=== PATIENT | male | born 1970 | race Two or more races ===

== ENCOUNTER 2018-06-04 08:25 | Observation (INO) | payer OTHER, SELFPAY ==
[2018-06-04 08:35] VITALS: BMI 33.0
[2018-06-04] MEDS ORDERED: Alum-Mag Hydrox-Simethicone Susp (30 mL) PO STA (08:46)
--- NOTE | 2018-06-04 08:50 | ED PDOC ---
Arrival/HPI - General Chief Complaint: Chest Pain Time Seen by Provider: 06/04/18 08:35 Historian: Patient - History of Present Illness Narrative History of Present Illness (Text): 06/04/18 08:46 47 year old male, with family hx of OH, presents to the Emergency department via EMS complaining of midsternal chest pain since 6:30 am this morning. Patient informs constant non-radiating "squeezing" pain exacerbated when laying flat and with deep inspirations. Patient denies similar symptoms in the past prompting him to present to the ED for medical evaluation. Patient denies any other associated somatic complaints. Patient denies any fevers, chills, headache, dizziness, shortness of breath, dyspnea on exertion, cough, abdominal pain, nausea, vomiting, diarrhea, back pain, neck pain, or any other complaints. Patient denies smoking tobacco, drinking alcohol or any substance use. Patient informs history of OH in the family. Patient states recent travel to [facility] but denies any history of DVT. PMD: Dr. Nieto Time/Duration: 1-3 hours Symptom Onset: Gradual Symptom Course: Unchanged Quality: Aching Activities at Onset: Light Context: Home Past Medical History - Provider Review Nursing Documentation Reviewed: Yes - Travel History If Yes, travel location?: [facility] - Cardiac Other/Comment: palpitations - Psychiatric Hx Substance Use: No Family/Social History - Physician Review Nursing Documentation Reviewed: Yes Family/Social History: No Known Family HX Smoking Status: Never Smoked Hx Alcohol Use: Yes Frequency of alcohol use: Socially Hx Substance Use: No Allergies/Home Meds Allergies/Adverse Reactions: Allergies NSAIDS (Non-Steroidal Anti-Inflamma Allergy (Verified 06/04/18 08:44) SHORTNESS OF BREATH Home Medications: Home Meds Medication Instructions Recorded Confirmed No Known Home Med 06/04/18 06/04/18 Review of Systems - Physician Review All systems were reviewed & negative as marked: Yes - Review of Systems Constitutional: absent: Fevers Respiratory: absent: SOB, Cough Cardiovascular: Chest Pain. absent: STALLWORTH Gastrointestinal: absent: Abdominal Pain, Diarrhea, Nausea, Vomiting Genitourinary Male: absent: Dysuria, Urinary Output Changes Musculoskeletal: absent: Back Pain, Neck Pain Skin: absent: Rash Neurological: absent: Headache, Dizziness Physical Exam Vital Signs Reviewed: Yes Vital Signs Temp Pulse Pulse Resp BP BP Pulse Ox 06/04/18 08:43 92 H 117/79 06/04/18 08:41 98.5 F 92 H 18 117/79 96 Temperature: Afebrile Blood Pressure: Normal Pulse: Regular Respiratory Rate: Normal Appearance: Positive for: Well-Appearing, Non-Toxic, Comfortable Pain Distress: None Mental Status: Positive for: Alert and Oriented X 3 - Systems Exam Head: Present: Atraumatic, Normocephalic Pupils: Present: PERRL Extroacular Muscles: Present: EOMI Conjunctiva: Present: Normal Mouth: Present: Moist Mucous Membranes Neck: Present: Normal Range of Motion. No: Meningeal Signs, MIDLINE TENDERNESS Respiratory/Chest: Present: Clear to Auscultation, Good Air Exchange. No: Respiratory Distress, Accessory Muscle Use Cardiovascular: Present: Regular Rate and Rhythm, Normal S1, S2. No: Murmurs Abdomen: Present: Normal Bowel Sounds. No: Tenderness, Distention, Peritoneal Signs Back: Present: Normal Inspection. No: CVA Tenderness Upper Extremity: Present: Normal Inspection, NORMAL PULSES, Capillary Refill < 2s. No: Cyanosis, Edema, Tenderness, Swelling Lower Extremity: Present: Normal Inspection, NORMAL PULSES, Normal ROM, Capillary Refill < 2 s. No: Edema, CALF TENDERNESS, Cyanosis, Erythema Neurological: Present: GCS=15, CN II-XII Intact, Speech Normal Skin: Present: Warm, Dry, Normal Color. No: Rashes Psychiatric: Present: Alert, Oriented x 3, Normal Insight, Normal Concentration Medical Decision Making ED Course and Treatment: 06/04/18 08:45 Impression: 47 yr old male w/ smoking hx and family HI of OH p/w CP started at 0630 this morning. Center of chest. non-reproducible w/ palpation. Low risk wells, no leg swelling or hx of DVT. Will seek Dimer to rule out. No recent cough. Differential Diagnosis included but are not limited to: Chest pain r/o ACS vs. musculoskeletal Heart score: 3 pending trop Age: 1 Story: 0 RF: 1 EK Troponin: pending Plan: -- EKG -- Labs -- Chest X-ray -- Tramadol -- Maalox -- Reassess and disposition Prior Visits: Notes and results from previous visits were reviewed. Progress Notes: 06/04/18 08:38 EKG: Ordered, reviewed, and independently interpreted the EKG. Rate : 93 BPM Rhythm : NSR Interpretation : No ST-segment elevations or depressions, no T-wave inversions, normal intervals. No STEMI. 06/04/18 10:00 1st trop negative. appreciate consult w/ Dr. Razo: obs to his service, pending 2nd trop, reassessment, disposition. Endorsed to Pt, agreeable. In NAD with VSS. Pt has allergy to NSAID: Aspirin hard stop. - RAD Interpretation Narrative RAD Interpretations (Text): 06/04/18 09:48 Chest X-ray reviewed by radiologist, shows: FINDINGS: LUNGS: No active pulmonary disease. PLEURA: No significant pleural effusion identified. No pneumothorax apparent. CARDIOVASCULAR: Normal. OSSEOUS STRUCTURES: No significant abnormalities. VISUALIZED UPPER ABDOMEN: Normal. OTHER FINDINGS: None. IMPRESSION: No active disease. Livestock Sales Representative: Radiologist - Scribe Statement The provider has reviewed the documentation as recorded by the Scribe Meghan Espinoza. All medical record entries made by the Scribe were at my direction and personally dictated by me. I have reviewed the chart and agree that the record accurately reflects my personal performance of the history, physical exam, medical decision making, and the department course for this patient. I have also personally directed, reviewed, and agree with the discharge instructions and disposition. Disposition/Present on Arrival - Present on Arrival Any Indicators Present on Arrival: No History of DVT/PE: No History of Uncontrolled Diabetes: No Urinary Catheter: No History of Decub. Ulcer: No History Surgical Site Infection Following: None - Disposition Have Diagnosis and Disposition been Completed?: Yes Diagnosis: Chest pain Disposition: HOSPITALIZED Disposition Time: 10:04 Patient Problems: Current Active Problems Problem Status Onset Chest pain Acute Condition: GOOD Discharge Instructions (ExitCare): Chest Pain (ED) Referrals: Ger Nieto MD, PhD [Primary Care Provider] - Follow up with primary Forms: [employer] (Slovak)
[2018-06-04 09:15] LABS: BASO # 0.01 K/mm3 (0.0-2.0); BASO % 0.1 % (0.0-3.0); EOS % 0.1 % (1.5-5.0); GRAN # 11.44 (1.4-6.5); GRAN % 85.5 % (50.0-68.0); HEMOGLOBIN 14.3 g/dL (14.0-18.0); LYMPH % 7.2 % (22.0-35.0); MEAN CELL VOLUME 78.4 fl (80.0-105.0); MEAN CORPUSCULAR HEMOGLOBIN 25.4 pg (25.0-35.0); MEAN CORPUSCULAR HGB CONC 32.4 g/dl (31.0-37.0); MEAN PLATELET VOLUME 9.7 fl (7.0-11.0); MONO % 7.1 % (1.0-6.0); RBC 5.64 10^6/uL (3.5-6.1); RED CELL DISTRIBUTION WIDTH 14.8 % (11.5-14.5); WHITE BLOOD COUNT 13.4 10^3/ul (4.5-11.0)
[2018-06-04 09:19] LABS: ALB/GLOB RATIO 1.3 (1.1-1.8); ALBUMIN 4.7 g/dL (3.0-4.8); ALT/SGPT 41 U/L (7-56); AST/SGOT 32 U/L (17-59); BLOOD UREA NITROGEN 18 mg/dL (7-21); CALCIUM 9.2 mg/dL (8.4-10.5); GFR NON-AFRICAN AMERICAN > 60
[2018-06-04 09:31] LABS: B-TYPE NATRIURETIC PEPTIDE 27.9 pg/mL (0-450); TROPONIN I < 0.01 ng/mL
--- NOTE | 2018-06-04 09:47 | RAD ---
Date of service: 06/04/2018 HISTORY: cp COMPARISON: No prior. TECHNIQUE: Chest PA and lateral FINDINGS: LUNGS: No active pulmonary disease. PLEURA: No significant pleural effusion identified. No pneumothorax apparent. CARDIOVASCULAR: Normal. OSSEOUS STRUCTURES: No significant abnormalities. VISUALIZED UPPER ABDOMEN: Normal. OTHER FINDINGS: None. IMPRESSION: No active disease.
[2018-06-04] MEDS ORDERED: Alum-Mag Hydrox-Simethicone Susp (30 mL) PO PRN (10:24)
[2018-06-04] MEDS: Sodium Chloride 0.9% 1,000 ML IV SCH ×2 (10:37→21:32)
[2018-06-04 10:41] LABS: INR 1.09; PARTIAL THROMBOPLASTIN TIME 28.8 Seconds (25.1-36.5); PROTHROMBIN TIME 12.6 SECONDS (9.4-12.5)
[2018-06-04 12:51] LABS: URINE BILIRUBIN NEGATIVE (NEGATIVE); URINE BLOOD NEGATIVE (NEGATIVE); URINE GLUCOSE (UA) NEGATIVE (NEGATIVE); URINE LEUKOCYTE ESTERASE NEGATIVE Leu/uL (NEGATIVE); URINE PROTEIN NEGATIVE mg/dL (<30 mg/dL); URINE UROBILINOGEN 0.2 E.U./dL (<1 E.U./dL)
[2018-06-04 12:53] LABS: URINE APPEARANCE CLEAR (CLEAR); URINE COLOR YELLOW (YELLOW)
[2018-06-04] MEDS ORDERED: Pneumococcal 23-Valent Vaccine IM ONE (13:33)
[2018-06-04] MEDS ORDERED: Influenza Vaccine 60 mcg/0.5 mL SYR (4YR UP) IM ONE (13:33)
--- NOTE | 2018-06-04 14:43 | CARD ---
APPROVED REPORT Date of service: 06/04/2018 EKG Measurement Heart [id number] <Conclusion> Normal sinus rhythm Nonspecific intraventricular conduction delay Otherwise normal ECG
[2018-06-04] MEDS: cefTRIAXone 1 gm 1 GM/100 ML BAG IVPB SCH (15:44)
[2018-06-04] MEDS: metroNIDAZOLE IV 500 mg/100 ml 500 MG/100 ML BAG IVPB SCH ×2 (15:46→21:28)
--- NOTE | 2018-06-04 16:01 | CP.PCM.HP ---
<Ry Garzon - Last Filed: 06/04/18 15:47> History of Present Illness - History of Present Illness History of Present Illness: H&P for Dr. Parnell CC: Chest pain/Shortness Of Breath/diaphoretic x 1 day HPI: 47 M with a PMHx of H.pylori presented to the [facility] ED with complaints of chest pains. Patient states that his pain began roughly 6 am and has remained constant, localized to the mid substernal region without region and rated at a 8/10. Pt states that he became short of breath by walking to his bathroom. Patient informs constant non-radiating "squeezing" pain exacerbated when laying flat and with deep inspirations. He did not endorse any alleviating factors. He has never felt these constellation of symptoms previously. He recently traveled to the [facility] [place] 05/11/18 and returned 05/18/18, during which time he had an upset stomach after eating sushi and reported loose stools currently (3x day). He tried to take melani dolores when the pain began today in an effort to illicit belching to help relieve the gas he usually gets. He was feeling malaise when he returned from the [facility] and visited his PMD where he states he got an Abdominal US performed. Pts last BM was last night. Patient denies any other associated somatic complaints. Patient denies any fevers, chills, headache, dizziness, shortness of breath, dyspnea on exertion, no tender to palpation on chest wall, cough, abdominal pain, nausea, vomiting, diarrhea, back pain, neck pain, or any other complaints. PMHx: H pylori PSHx: Denied SHx: Denied tobacco, occasional Etoh, dneied illicits, lives in [place] with sister FamHx: Grandma [place] @ 50yr old Allergies: NSAIDs - throat swelling Meds: None PMD: Dr. Nieto -[phone] Present on Admission - Present on Admission Any Indicators Present on Admission: No Review of Systems - Review of Systems Review of Systems: As per HPI otherwise negative Past Patient History - Past Social History Smoking Status: Never Smoked - CARDIAC Hx Cardiac Disorders: Yes Other/Comment: palpitations - PULMONARY Hx Respiratory Disorders: No - NEUROLOGICAL Hx Neurological Disorder: No - HEENT Hx HEENT Problems: No - RENAL Hx Chronic Kidney Disease: No - ENDOCRINE/METABOLIC Hx Endocrine Disorders: No - HEMATOLOGICAL/ONCOLOGICAL Hx Blood Disorders: No - INTEGUMENTARY Hx Dermatological Problems: No - MUSCULOSKELETAL/RHEUMATOLOGICAL Hx Musculoskeletal Disorders: No Hx Falls: No - GASTROINTESTINAL Hx Gastrointestinal Disorders: No - GENITOURINARY/GYNECOLOGICAL Hx Genitourinary Disorders: No Hx Hematuria: Yes (1x day last week) - PSYCHIATRIC Hx Psychophysiologic Disorder: No Hx Substance Use: No - SURGICAL HISTORY Hx Surgeries: No Meds Home Medications: Home Medication List Medication Instructions Recorded Confirmed Type Pantoprazole [Protonix Inj] 40 mg IVP DAILY #30 vial 06/05/18 Rx Allergies/Adverse Reactions: Allergies Allergy/AdvReac Type Severity Reaction Status Date / Time NSAIDS (Non-Steroidal Allergy SHORTNESS Verified 06/04/18 11:45 Anti-Inflamma OF BREATH Physical Exam - Constitutional Appears: No Acute Distress - Head Exam Head Exam: ATRAUMATIC, NORMAL INSPECTION, NORMOCEPHALIC - Eye Exam Eye Exam: EOMI, Normal appearance, PERRL Pupil Exam: NORMAL ACCOMODATION, PERRL - ENT Exam ENT Exam: Mucous Membranes Moist, Normal Exam - Respiratory Exam Respiratory Exam: Clear to Auscultation Bilateral, NORMAL BREATHING PATTERN - Cardiovascular Exam Cardiovascular Exam: REGULAR RHYTHM, +S1, +S2 - GI/Abdominal Exam GI & Abdominal Exam: Normal Bowel Sounds, Soft. absent: Tenderness - Extremities Exam Extremities exam: Positive for: normal inspection - Neurological Exam Neurological exam: Alert, CN II-XII Intact, Normal Gait, Oriented x3, Reflexes Normal - Psychiatric Exam Psychiatric exam: Normal Affect, Normal Mood - Skin Skin Exam: Dry, Intact, Normal Color, Warm Results - Vital Signs Recent Vital Signs: Last Vital Signs Temp 98.3 F 06/04/18 12:22 Pulse 93 H 06/04/18 12:22 Resp 16 06/04/18 13:16 BP 120/70 06/04/18 11:00 Pulse Ox 98 06/04/18 12:22 - Labs Result Diagrams: 06/04/18 09:04 06/04/18 09:04 Labs: Laboratory Results - last 24 hr 06/04/18 06/04/18 06/04/18 09:04 09:04 09:04 WBC 13.4 H RBC 5.64 Hgb 14.3 Hct 44.2 MCV 78.4 L MCH 25.4 MCHC 32.4 RDW 14.8 H Plt Count 219 MPV 9.7 Gran % 85.5 H Lymph % (Auto) 7.2 L [place] % (Auto) 7.1 H Eos % (Auto) 0.1 L Baso % (Auto) 0.1 Gran # 11.44 H Lymph # (Auto) 1.0 L [place] # (Auto) 1.0 H Eos # (Auto) 0.0 Baso # (Auto) 0.01 PT INR APTT D-Dimer, Quantitative < 200 Sodium 141 Potassium 4.0 Chloride 104 Carbon Dioxide 28 Anion Gap 13 BUN 18 Creatinine 1.0 Est GFR ( Amer) > 60 Est GFR (Non-Af Amer) > 60 Random Glucose 114 H Hemoglobin A1c Calcium 9.2 Phosphorus Magnesium 2.2 Total Bilirubin 0.4 AST 32 ALT 41 Alkaline Phosphatase 55 Troponin I < 0.01 NT-Pro-B Natriuret Pep 27.9 Total Protein 8.4 H Albumin 4.7 Globulin 3.7 Albumin/Globulin Ratio 1.3 Triglycerides Cholesterol LDL Cholesterol Direct HDL Cholesterol Lipase Free T4 TSH 3rd Generation Urine Color Urine Appearance Urine pH Ur Specific [place] Urine Protein Urine Glucose (UA) Urine Ketones Urine Blood Urine Nitrate Urine Bilirubin Urine Urobilinogen Ur Leukocyte Esterase 06/04/18 06/04/18 06/04/18 09:04 09:04 09:04 WBC RBC Hgb Hct MCV MCH MCHC RDW Plt Count MPV Gran % Lymph % (Auto) [place] % (Auto) Eos % (Auto) Baso % (Auto) Gran # Lymph # (Auto) [place] # (Auto) Eos # (Auto) Baso # (Auto) PT INR APTT D-Dimer, Quantitative Sodium Potassium Chloride Carbon Dioxide Anion Gap BUN Creatinine Est GFR ( Amer) Est GFR (Non-Af Amer) Random Glucose Hemoglobin A1c 5.9 Calcium Phosphorus 2.3 L Magnesium Total Bilirubin AST ALT Alkaline Phosphatase Troponin I NT-Pro-B Natriuret Pep Total Protein Albumin Globulin Albumin/Globulin Ratio Triglycerides 155 Cholesterol 269 H LDL Cholesterol Direct 190 H HDL Cholesterol 46 Lipase 17 L Free T4 TSH 3rd Generation 0.36 L Urine Color Urine Appearance Urine pH Ur Specific [place] Urine Protein Urine Glucose (UA) Urine Ketones Urine Blood Urine Nitrate Urine Bilirubin Urine Urobilinogen Ur Leukocyte Esterase 06/04/18 06/04/18 06/04/18 09:04 09:04 12:20 WBC RBC Hgb Hct MCV MCH MCHC RDW Plt Count MPV Gran % Lymph % (Auto) [place] % (Auto) Eos % (Auto) Baso % (Auto) Gran # Lymph # (Auto) [place] # (Auto) Eos # (Auto) Baso # (Auto) PT 12.6 H INR 1.09 APTT 28.8 D-Dimer, Quantitative Sodium Potassium Chloride Carbon Dioxide Anion Gap BUN Creatinine Est GFR ( Amer) Est GFR (Non-Af Amer) Random Glucose Hemoglobin A1c Calcium Phosphorus Magnesium Total Bilirubin AST ALT Alkaline Phosphatase Troponin I NT-Pro-B Natriuret Pep Total Protein Albumin Globulin Albumin/Globulin Ratio Triglycerides Cholesterol LDL Cholesterol Direct HDL Cholesterol Lipase Free T4 0.80 TSH 3rd Generation Urine Color Yellow Urine Appearance Clear Urine pH 6.0 Ur Specific [place] 1.020 Urine Protein Negative Urine Glucose (UA) Negative Urine Ketones 15 H Urine Blood Negative Urine Nitrate Negative Urine Bilirubin Negative Urine Urobilinogen 0.2 Ur Leukocyte Esterase Negative Assessment & Plan - Assessment and Plan (Free Text) Assessment: 47 M with a PMHx of H.pylori presented to the [facility] ED with complaints of chest pains. Patient states that his pain began roughly 6 am and has remained constant, localized to the mid substernal region without region and rated at a 8/10 admitted to tele to ro ACS Chest pain r/o ACS vs GI trend trops trend EKG Cardiology consulted, Dr. Wilburn Echo fu TSH Lipid profile Statin Aspirin allergy Lipase FU abd US from PMD monitor Vitals Loose stools stool cx ova parasites flagyl and rocephin GI ppx protonix DVT ppx Heparin Seen reviewed and discussed with attending Dr. Parnell <Afua Parnell - Last Filed: 06/05/18 17:45> Results - Vital Signs Recent Vital Signs: Last Vital Signs Temp 98.1 F 06/05/18 08:10 Pulse 87 06/05/18 14:00 Resp 19 06/05/18 08:10 BP 101/68 06/05/18 08:10 Pulse Ox 95 06/05/18 08:10 - Labs Result Diagrams: 06/05/18 06:30 06/05/18 06:30 Labs: Laboratory Results - last 24 hr 06/04/18 06/05/18 06/05/18 23:45 06:30 06:30 WBC 10.3 D RBC 4.93 Hgb 12.3 L D Hct 38.6 L MCV 78.3 L MCH 24.9 L MCHC 31.9 RDW 14.9 H Plt Count 219 MPV 9.9 Gran % 63.8 Lymph % (Auto) 25.7 [place] % (Auto) 10.0 H Eos % (Auto) 0.4 L Baso % (Auto) 0.1 Gran # 6.56 H Lymph # (Auto) 2.6 [place] # (Auto) 1.0 H Eos # (Auto) 0.0 Baso # (Auto) 0.01 Sodium 139 Potassium 3.6 Chloride 105 Carbon Dioxide 27 Anion Gap 10 BUN 14 Creatinine 1.0 Est GFR ( Amer) > 60 Est GFR (Non-Af Amer) > 60 Random Glucose 98 Calcium 8.5 Phosphorus Total Bilirubin 0.9 AST 22 ALT 35 Alkaline Phosphatase 45 Troponin I 0.04 Total Protein 6.9 Albumin 3.7 Globulin 3.3 Albumin/Globulin Ratio 1.1 06/05/18 08:00 WBC RBC Hgb Hct MCV MCH MCHC RDW Plt Count MPV Gran % Lymph % (Auto) [place] % (Auto) Eos % (Auto) Baso % (Auto) Gran # Lymph # (Auto) [place] # (Auto) Eos # (Auto) Baso # (Auto) Sodium Potassium Chloride Carbon Dioxide Anion Gap BUN Creatinine Est GFR ( Amer) Est GFR (Non-Af Amer) Random Glucose Calcium Phosphorus 2.9 Total Bilirubin AST ALT Alkaline Phosphatase Troponin I Total Protein Albumin Globulin Albumin/Globulin Ratio Attending/Attestation - Attestation I have personally seen and examined this patient.: Yes I have fully participated in the care of the patient.: Yes I have reviewed all pertinent clinical information: Yes Notes (Text): 06/05/18 17:43 Attending note; Patient seen and examined with resident. Patient is alert and awake. Complaining of upper epigastric/substernal area pain. Burning in nature sometimes. Not in any acute distress. Atypical chest pain; EKG shows normal sinus rhythm/no acute ST-T changes. Cardiac enzymes 1 negative. Cardiac enzymes 3 ordered. Cardiology evaluation requested. History of H. pylori treated. possible gastritis suspected. Started on Protonix. History of recent gastroenteritis. Currently no diarrhea. Tolerating diet well. Started on Rocephin and Flagyl. Monitor closely. Upon discharge the patient will follow up with PMD Dr. Sifuentes. 06/05/18 17:45
--- NOTE | 2018-06-05 04:00 | CON ---
DATE: 06/04/2018 CONSULT SERVICE: Cardiology. REASON FOR THE CONSULTATION: Cardiac evaluation and chest pain (epigastric pain). BRIEF CLINICAL HISTORY: This is a 47-year-old obese male with history of H. pylori, presented to the [facility] after taking shower at 3 p.m. opened the window and then he felt chest pain taking a deep breath and epigastric pain. Denies any chest pain or dyspnea on exertion prior to that. Day before yesterday, the patient did grocery for his aunt and took the steps for third floor. No history of chest pain prior to that. PAST MEDICAL HISTORY: Nothing significant. SOCIAL HISTORY: Denies smoking, but drinks 3 to 4 cans of beer and hard liquor every weekend and goes to bar and watch the football match and drinks. PAST SURGICAL HISTORY: Nothing significant. FAMILY HISTORY: Noncontributory except grandmother at the age of 45, but she was a very heavy smoker. CURRENT MEDICATIONS: None. ALLERGIES: Not sure. REVIEW OF SYSTEMS: As per HPI. PHYSICAL EXAMINATION: VITAL SIGNS: Height of the patient 5 feet 10 inches, weight of the patient 230 pounds, body mass index 34 kg/m2. Temperature afebrile, heart rate 93, blood pressure 120/70. HEENT: PERRLA. Extraocular muscles intact. NECK: Supple. No carotid bruit or thyromegaly. CHEST: Clear to auscultation. HEART: S1 and S2 regular. ABDOMEN: Soft. EXTREMITIES: Clubbing and cyanosis negative. LABORATORY DATA: Blood workup as follows: WBC 13.4, hemoglobin 14.9, hematocrit 44.2, platelet count 219. Chemistry shows sodium 141, potassium 4, chloride 104, carbon dioxide 28, anion gap of 30, BUN 18, creatinine 1.0. Triglycerides 155, cholesterol 269, LDL 190, HDL 46, lipase 17. TSH is 0.36. Blood sugar 114. Hemoglobin A1c 5.9. IMPRESSION: A 47-year-old male with no significant past medical history, prediabetic, hyperlipidemia, morbid obesity, multiple history of coronary artery disease. Though the chest pain appears very atypical, it increases on taking a deep breath and after having a shower and cold exposure, it could be early bronchitis versus probably musculoskeletal chest pain. Also, it could be gastric pain, history of Helicobacter pylori, but the concern is patient's multiple history of coronary artery disease, suggest echo, stress test. We will schedule the stress test tomorrow. Appears to be noncompliant with the patient goals for risk stratification, very difficult to get the stress, so we will schedule the stress test tomorrow, keep n.p.o. and we will also start atorvastatin 20 mg daily and we will give baby aspirin and we will follow the stress test and echo. Thank you Dr. Parnell, for providing us the opportunity in taking care of the patient. Keenan Hardy. We will follow with you. Анна Raphael MD
[2018-06-05] MEDS: metroNIDAZOLE IV 500 mg/100 ml 500 MG/100 ML BAG IVPB SCH ×2 (06:16→14:55)
[2018-06-05 06:56] LABS: BASO # 0.01 K/mm3 (0.0-2.0); BASO % 0.1 % (0.0-3.0); EOS % 0.4 % (1.5-5.0); GRAN # 6.56 (1.4-6.5); GRAN % 63.8 % (50.0-68.0); LYMPH # 2.6 (1.2-3.4); LYMPH % 25.7 % (22.0-35.0); MEAN CELL VOLUME 78.3 fl (80.0-105.0); MEAN CORPUSCULAR HEMOGLOBIN 24.9 pg (25.0-35.0); MEAN CORPUSCULAR HGB CONC 31.9 g/dl (31.0-37.0); MEAN PLATELET VOLUME 9.9 fl (7.0-11.0); RBC 4.93 10^6/uL (3.5-6.1); RED CELL DISTRIBUTION WIDTH 14.9 % (11.5-14.5); WHITE BLOOD COUNT 10.3 10^3/ul (4.5-11.0)
[2018-06-05 07:00] LABS: HEMOGLOBIN 12.3 g/dL (14.0-18.0)
[2018-06-05 07:19] LABS: ALB/GLOB RATIO 1.1 (1.1-1.8); ALBUMIN 3.7 g/dL (3.0-4.8); ALT/SGPT 35 U/L (7-56); AST/SGOT 22 U/L (17-59); BLOOD UREA NITROGEN 14 mg/dL (7-21); CALCIUM 8.5 mg/dL (8.4-10.5); GFR NON-AFRICAN AMERICAN > 60
--- NOTE | 2018-06-05 07:27 | CP.PCM.PN ---
Subjective - Date & Time of Evaluation Date of Evaluation: 06/05/18 Time of Evaluation: 06:40 - Subjective Subjective: Awake,alert,denies chest pain, going for stress test today Reason for consultation and follow up: Cardiac evaluation of chest pain (epi gastric pain),history of H-pylori. Seen and examined by me and Dr. Raphael Objective - Vital Signs/Intake and Output Vital Signs (last 24 hours): Temp Pulse Resp BP Pulse Ox 98.2 F 82 20 119/85 97 06/05/18 00:01 06/05/18 06:00 06/05/18 00:01 06/05/18 00:01 06/05/18 00:01 Intake and Output: 06/05/18 06/05/18 06:59 18:59 Intake Total 1680 Balance 1680 - Medications Medications: Current Medications Al Hydrox/Mg Hydrox/Simethicone (Maalox Plus 30 Ml) 30 ml PO DAILY PRN PRN Reason: Indigestion / Heartburn Last Admin: 06/04/18 22:37 Dose: 30 ml Atorvastatin Calcium (Lipitor) 40 mg PO DIN [facility] Last Admin: 06/04/18 17:22 Dose: 40 mg Heparin Sodium (Porcine) (Heparin) 5,000 units SC Q12 JEFF; Protocol Last Admin: 06/04/18 21:29 Dose: 5,000 units Sodium Chloride (Sodium Chloride 0.9%) 1,000 mls @ 100 mls/hr IV .Q10H JEFF Last Admin: 06/04/18 21:32 Dose: 100 mls/hr Metronidazole (Flagyl) 500 mg in 100 mls @ 100 mls/hr IVPB Q8 JEFF; Protocol Last Admin: 06/05/18 06:16 Dose: 100 mls/hr Ceftriaxone Sodium (Rocephin 1 Gram Ivpb) 1 gm in 100 mls @ 100 mls/hr IVPB DAILY JEFF; Protocol Last Admin: 06/04/18 15:44 Dose: 100 mls/hr Pantoprazole Sodium (Protonix Inj) 40 mg IVP DAILY [facility] Last Admin: 06/04/18 10:37 Dose: 40 mg - Labs Labs: 06/05/18 06:30 06/05/18 06:30 PT 12.6 SECONDS (9.4-12.5) H 06/04/18 09:04 INR 1.09 06/04/18 09:04 APTT 28.8 Seconds (25.1-36.5) 06/04/18 09:04 - Constitutional Appears: Non-toxic, No Acute Distress - Head Exam Head Exam: NORMAL INSPECTION, NORMOCEPHALIC - Eye Exam Eye Exam: Normal appearance Pupil Exam: NORMAL ACCOMODATION - ENT Exam ENT Exam: Mucous Membranes Moist, Normal Exam - Respiratory Exam Respiratory Exam: Clear to Ausculation Bilateral, NORMAL BREATHING PATTERN - Cardiovascular Exam Cardiovascular Exam: REGULAR RHYTHM, +S1, +S2 Additional comments: Telemetry NSR 70's - GI/Abdominal Exam GI & Abdominal Exam: Soft, Normal Bowel Sounds - Extremities Exam Extremities Exam: Full ROM, Normal Capillary Refill - Neurological Exam Neurological Exam: Alert, Awake, Oriented x3 - Psychiatric Exam Psychiatric exam: Normal Affect, Normal Mood - Skin Skin Exam: Dry, Intact, Normal Color, Warm Assessment and Plan - Assessment and Plan (Free Text) Assessment: A 47 year old male who came in to the ER due to localized mid sternal non radiating chest pains. Chest pain increases when taking deep breaths.History of H-pylori. Prediabetic, obese, hyperlipidemia.Travelled to [facility] recently and reported to have loose stools. Atrypical chest pain,considering co-morbidities and family history of coronary artery disease. For stress test today and Echo. Plan: Feels okay, denies chest pain For Stress test today NPO post midnight For Echo to evaluate LV function Heart rate stable Blood pressure stable Continue current medications Continue current treatment Will follow up Chart reviewed Plan and treatment discussed with Dr. Raphael
[2018-06-05 08:11] VITALS: BP 101/68; RESP 19; TEMP 98.1; O2SAT 95
[2018-06-05] MEDS: cefTRIAXone 1 gm 1 GM/100 ML BAG IVPB SCH (10:48)
--- NOTE | 2018-06-05 12:57 | CP.PCM.PN ---
<Nicole Mehta - Last Filed: 06/05/18 16:30> Subjective - Date & Time of Evaluation Date of Evaluation: 06/05/18 Time of Evaluation: 10:00 - Subjective Subjective: Patient seen and examined at bedside this am. He was standing at bedside with no complaints. He states that he experienced chest burning and nausea during the stress test but no vomiting. He otherwise denies ESTRADA, SOB, abdominal pain, dysuria and extremity pain. Objective - Vital Signs/Intake and Output Vital Signs (last 24 hours): Temp Pulse Resp BP Pulse Ox 98.1 F 59 L 19 101/68 95 06/05/18 08:10 06/05/18 08:10 06/05/18 08:10 06/05/18 08:10 06/05/18 08:10 Intake and Output: 06/05/18 06/05/18 06:59 18:59 Intake Total 1680 Balance 1680 - Medications Medications: Current Medications Al Hydrox/Mg Hydrox/Simethicone (Maalox Plus 30 Ml) 30 ml PO DAILY PRN PRN Reason: Indigestion / Heartburn Last Admin: 06/04/18 22:37 Dose: 30 ml Atorvastatin Calcium (Lipitor) 40 mg PO DIN JEFF Last Admin: 06/04/18 17:22 Dose: 40 mg Heparin Sodium (Porcine) (Heparin) 5,000 units SC Q12 JEFF; Protocol Last Admin: 06/05/18 10:47 Dose: Not Given Sodium Chloride (Sodium Chloride 0.9%) 1,000 mls @ 100 mls/hr IV .Q10H JEFF Last Admin: 06/04/18 21:32 Dose: 100 mls/hr Metronidazole (Flagyl) 500 mg in 100 mls @ 100 mls/hr IVPB Q8 JEFF; Protocol Last Admin: 06/05/18 06:16 Dose: 100 mls/hr Ceftriaxone Sodium (Rocephin 1 Gram Ivpb) 1 gm in 100 mls @ 100 mls/hr IVPB DAILY JEFF; Protocol Last Admin: 06/05/18 10:48 Dose: Not Given Pantoprazole Sodium (Protonix Inj) 40 mg IVP DAILY [facility] Last Admin: 06/05/18 10:48 Dose: Not Given - Labs Labs: 06/05/18 06:30 06/05/18 06:30 PT 12.6 SECONDS (9.4-12.5) H 06/04/18 09:04 INR 1.09 06/04/18 09:04 APTT 28.8 Seconds (25.1-36.5) 06/04/18 09:04 - Constitutional Appears: Well, Non-toxic, No Acute Distress - Head Exam Head Exam: ATRAUMATIC, NORMOCEPHALIC - Eye Exam Eye Exam: EOMI - ENT Exam ENT Exam: Mucous Membranes Moist - Respiratory Exam Respiratory Exam: NORMAL BREATHING PATTERN - Cardiovascular Exam Cardiovascular Exam: REGULAR RHYTHM - GI/Abdominal Exam GI & Abdominal Exam: Soft. absent: Distended, Guarding, Tenderness - Extremities Exam Extremities Exam: absent: Calf Tenderness, Pedal Edema - Neurological Exam Neurological Exam: Alert, Awake, Normal Gait, Oriented x3 - Psychiatric Exam Psychiatric exam: Normal Affect, Normal Mood - Skin Skin Exam: Dry, Intact, Normal Color, Warm Assessment and Plan - Assessment and Plan (Free Text) Assessment: 47 yr old M with burning chest pain and GERD-like symptoms Plan: - patient is to follow up stress test results outpatient per Dr. Raphael - patient will be discharged with Protonix 40mg PO Daily #30 - patient has been instructed to f/u with his primary care doctor out patient within 3-5 days as well as with Dr. raphael in the same time period Patient seen and examined with Dr. Parmjit Mehta, PGY 1 <Afua Parnell - Last Filed: 06/05/18 17:47> Objective - Vital Signs/Intake and Output Vital Signs (last 24 hours): Temp Pulse Resp BP Pulse Ox 98.1 F 87 19 101/68 95 06/05/18 08:10 06/05/18 14:00 06/05/18 08:10 06/05/18 08:10 06/05/18 08:10 Intake and Output: 06/05/18 06/05/18 06:59 18:59 Intake Total 1680 Balance 1680 - Labs Labs: 06/05/18 06:30 06/05/18 06:30 PT 12.6 SECONDS (9.4-12.5) H 06/04/18 09:04 INR 1.09 06/04/18 09:04 APTT 28.8 Seconds (25.1-36.5) 06/04/18 09:04 Attending/Attestation - Attestation I have personally seen and examined this patient.: Yes I have fully participated in the care of the patient.: Yes I have reviewed all pertinent clinical information, including history, physical exam and plan: Yes Notes (Text): 06/05/18 17:46 Attending note; Patient seen and examined with resident. Patient is alert and awake. Complaining of upper epigastric/substernal area pain. Burning in nature sometimes. Not in any acute distress. going for stess test today. Atypical chest pain; EKG shows normal sinus rhythm/no acute ST-T changes. Cardiac enzymes 3 negative. Cardiology evaluation appreciated. History of H. pylori treated. possible gastritis suspected. Started on Protonix. History of recent gastroenteritis. Currently no diarrhea. Tolerating diet well. Upon discharge the patient will follow up with PMD Dr. Sifuentes.
--- NOTE | 2018-06-05 15:21 | PN ---
DATE: 06/05/2018 SUBJECTIVE: The patient denies any chest pain, going for a stress test. The patient underwent a stress test for 9 minutes. No EKG changes noted. Awaiting for nuclear scan. So far no evidence of acute GA. Troponin remains negative. First one is negative. Second one is 0.04, also indeterminate range. During the multiple defect, suggest a stress test. We will follow with you. Thank you, Dr. Parnell, for providing us the opportunity in taking care of the patient, Hayley Hussein. Анна Raphael MD
[2018-06-05 16:11] VITALS: PULSE 87
--- NOTE | 2018-06-05 16:48 | CARD ---
APPROVED REPORT Date of service: 06/05/2018 EXAM: Two-dimensional and M-mode echocardiogram with Doppler and color Doppler. INDICATION Chest Pain 2D DIMENSIONS Left Atrium (2D)4.2 (1.6-4.0cm)IVSd1.1 (0.7-1.1cm) LVDd4.9 (3.9-5.9cm)PWd1.2 (0.7-1.1cm) LVDs3.5 (2.5-4.0cm)FS (%) 28.6 % LVEF (%)55.0 (>50%) M-Mode DIMENSIONS Aortic Root3.60 (2.2-3.7cm)Aortic Cusp Exc.1.90 (1.5-2.0cm) Aortic Valve AoV Peak Cujvpldu056.0cm/Michael Peak GR.8mmHg Mitral Valve MV E Eucymkmv28.5cm/sMV A Wgdddwzf76.3cm/sE/A ratio1.4 TDI Lateral E' Peak V12.80cm/sMedial E' Peak V8.97cm/sE/Lateral E'6.2 E/Medial E'8.9 Pulmonary Valve PV Peak Zkaiqltk25.1cm/sPV Peak Grad.2mmHg Tricuspid Valve TR Peak Qyujjdtr672dg/sRAP WCUKSCZL27poZcPV Peak Gr.24mmHg [id number] LEFT VENTRICLE The left ventricle is normal size. There is normal left ventricular wall thickness. The left ventricular ejection fraction is within the normal range. Lateral wall hypokinesis The left ventricular diastolic function is normal. RIGHT VENTRICLE The right ventricle is normal size. There is normal right ventricular wall thickness. The right ventricular systolic function is normal. ATRIA The left atrium is borderline dilated. The right atrium size is normal. AORTIC VALVE The aortic valve is normal in structure. No aortic regurgitation is present. There is no aortic valvular stenosis. MITRAL VALVE The mitral valve is normal in structure. Mitral regurgitation is trace. There is no mitral valve stenosis. TRICUSPID VALVE The tricuspid valve is normal in structure. There is mild tricuspid regurgitation. There is mild pulmonary hypertension. PULMONIC VALVE The pulmonary valve is normal in structure. There is mild pulmonic valvular regurgitation. GREAT VESSELS The aortic root is normal in size. The IVC is normal in size and collapses >50% with inspiration. PERICARDIAL EFFUSION There is no pericardial effusion. <Conclusion> The left ventricle is normal size. There is normal left ventricular wall thickness. The left ventricular ejection fraction is within the normal range. Lateral wall hypokinesis The left ventricular diastolic function is normal. There is mild tricuspid regurgitation. There is mild pulmonary hypertension.
--- NOTE | 2018-06-05 16:52 | CP.PCM.DIS ---
<Nicole Mehta - Last Filed: 06/05/18 16:58> Provider - Provider Date of Admission: 06/04/18 09:58 Attending physician: Afua Parnell MD Primary care physician: Ger Nieto MD Phd Consults: Cardiology- Dr. Grace Time Spent in preparation of Discharge (in minutes): 45 Diagnosis - Discharge Diagnosis (1) GERD (gastroesophageal reflux disease) Status: Acute (2) Chest pain Status: Acute Hospital Course - Lab Results Lab Results: Most Recent Lab Values WBC 10.3 10^3/ul (4.5-11.0) D 06/05/18 06:30 RBC 4.93 10^6/uL (3.5-6.1) 06/05/18 06:30 Hgb 12.3 g/dL (14.0-18.0) L D 06/05/18 06:30 Hct 38.6 % (42.0-52.0) L 06/05/18 06:30 MCV 78.3 fl (80.0-105.0) L 06/05/18 06:30 MCH 24.9 pg (25.0-35.0) L 06/05/18 06:30 MCHC 31.9 g/dl (31.0-37.0) 06/05/18 06:30 RDW 14.9 % (11.5-14.5) H 06/05/18 06:30 Plt Count 219 10^3/uL (120.0-450.0) 06/05/18 06:30 MPV 9.9 fl (7.0-11.0) 06/05/18 06:30 Gran % 63.8 % (50.0-68.0) 06/05/18 06:30 Lymph % (Auto) 25.7 % (22.0-35.0) 06/05/18 06:30 [place] % (Auto) 10.0 % (1.0-6.0) H 06/05/18 06:30 Eos % (Auto) 0.4 % (1.5-5.0) L 06/05/18 06:30 Baso % (Auto) 0.1 % (0.0-3.0) 06/05/18 06:30 Gran # 6.56 (1.4-6.5) H 06/05/18 06:30 Lymph # (Auto) 2.6 (1.2-3.4) 06/05/18 06:30 [place] # (Auto) 1.0 (0.1-0.6) H 06/05/18 06:30 Eos # (Auto) 0.0 (0.0-0.7) 06/05/18 06:30 Baso # (Auto) 0.01 K/mm3 (0.0-2.0) 06/05/18 06:30 PT 12.6 SECONDS (9.4-12.5) H 06/04/18 09:04 INR 1.09 06/04/18 09:04 APTT 28.8 Seconds (25.1-36.5) 06/04/18 09:04 D-Dimer, Quantitative < 200 ng/mlDDU (0-243) 06/04/18 09:04 Sodium 139 mmol/L (132-148) 06/05/18 06:30 Potassium 3.6 mmol/L (3.6-5.0) 06/05/18 06:30 Chloride 105 mmol/L (98-107) 06/05/18 06:30 Carbon Dioxide 27 mmol/L (21-33) 06/05/18 06:30 Anion Gap 10 (10-20) 06/05/18 06:30 BUN 14 mg/dL (7-21) 06/05/18 06:30 Creatinine 1.0 mg/dl (0.8-1.5) 06/05/18 06:30 Est GFR ( Amer) > 60 06/05/18 06:30 Est GFR (Non-Af Amer) > 60 06/05/18 06:30 Random Glucose 98 mg/dL (70-110) 06/05/18 06:30 Hemoglobin A1c 5.9 % (4.2-6.5) 06/04/18 09:04 Calcium 8.5 mg/dL (8.4-10.5) 06/05/18 06:30 Phosphorus 2.9 mg/dL (2.5-4.5) 06/05/18 08:00 Magnesium 2.2 mg/dL (1.7-2.2) 06/04/18 09:04 Total Bilirubin 0.9 mg/dL (0.2-1.3) 06/05/18 06:30 AST 22 U/L (17-59) 06/05/18 06:30 ALT 35 U/L (7-56) 06/05/18 06:30 Alkaline Phosphatase 45 U/L (38-126) 06/05/18 06:30 Troponin I 0.04 ng/mL 06/04/18 23:45 NT-Pro-B Natriuret Pep 27.9 pg/mL (0-450) 06/04/18 09:04 Total Protein 6.9 g/dL (5.8-8.3) 06/05/18 06:30 Albumin 3.7 g/dL (3.0-4.8) 06/05/18 06:30 Globulin 3.3 gm/dL 06/05/18 06:30 Albumin/Globulin Ratio 1.1 (1.1-1.8) 06/05/18 06:30 Triglycerides 155 mg/dL (35-160) 06/04/18 09:04 Cholesterol 269 mg/dL (130-200) H 06/04/18 09:04 LDL Cholesterol Direct 190 mg/dL (0-129) H 06/04/18 09:04 HDL Cholesterol 46 mg/dL (29-60) 06/04/18 09:04 Lipase 17 U/L (23-300) L 06/04/18 09:04 Free T4 0.80 ng/dL (0.78-2.19) 06/04/18 09:04 TSH 3rd Generation 0.36 mIU/mL (0.46-4.68) L 06/04/18 09:04 Urine Color Yellow (YELLOW) 06/04/18 12:20 Urine Appearance Clear (CLEAR) 06/04/18 12:20 Urine pH 6.0 (4.7-8.0) 06/04/18 12:20 Ur Specific Remlap 1.020 (1.005-1.035) 06/04/18 12:20 Urine Protein Negative mg/dL (<30 mg/dL) 06/04/18 12:20 Urine Glucose (UA) Negative mg/dL (NEGATIVE) 06/04/18 12:20 Urine Ketones 15 mg/dL (NEGATIVE) H 06/04/18 12:20 Urine Blood Negative (NEGATIVE) 06/04/18 12:20 Urine Nitrate Negative (NEGATIVE) 06/04/18 12:20 Urine Bilirubin Negative (NEGATIVE) 06/04/18 12:20 Urine Urobilinogen 0.2 E.U./dL (<1 E.U./dL) 06/04/18 12:20 Ur Leukocyte Esterase Negative Janae/uL (NEGATIVE) 06/04/18 12:20 - Hospital Course Hospital Course: 47 y/o M patient with PMHx H. pylori presented to [facility] ED c/o chest pain. Pain began roughly at 6am yesterday and has remained constant, localized to the mid substernal region without radiation. Pt states became short of breath while walking to the bathroom. Patient states pain is non-radiating and constant "squeezing" pain that is exacerbated by laying flat and with deep inspirations. He did not endorse any alleviating factors. He never has had these symptoms before. He recently traveled to the [facility] [place] 05/11/18 and returned 05/18/18, during which time he had an upset stomach after eating sushi and reported loose stools currently (3x day). He tried to take melani dolores when the pain began today in an effort to illicit belching. He was feeling malaise when he returned from the [facility] [place] and visited his PMD where he states he got an abdominal US performed. He will be following up with his PMD for results. Pts last BM was last night. Patient denies any other associated somatic complaints. Patient denies any fevers, chills, headaches. Upon admission, troponins were negative x2 and EKG revealed normal sinus rhythm with nonspecific intraventricular conduction delay. CXR showed no active disease. Stress test was performed. Patient is to follow up stress test results outpatient per Dr. Grace. Heart rate and blood pressure were stable throughout hospital stay. On morning of discharge, patient was awake, alert, and oriented x3. Patient was medically stable. Denies chest pain and shortness of breath. Patient has been instructed to f/u with primary care physician outpatient within 3-5 days of discharge as well as f/u with Dr. Grace for stress test results. Discharge Exam - Head Exam Head Exam: ATRAUMATIC, NORMOCEPHALIC - Eye Exam Eye Exam: EOMI - ENT Exam ENT Exam: Mucous Membranes Moist - Respiratory Exam Respiratory Exam: Clear to PA & Lateral, NORMAL BREATHING PATTERN - Cardiovascular Exam Cardiovascular Exam: REGULAR RHYTHM - GI/Abdominal Exam GI & Abdominal Exam: Soft. absent: Distended, Guarding, Rigid, Tenderness - Extremities Exam Extremities exam: normal capillary refill, pedal pulses present - Back Exam Back exam: NORMAL INSPECTION - Neurological Exam Neurological exam: Alert, Oriented x3 - Psychiatric Exam Psychiatric exam: Normal Affect, Normal Mood - Skin Skin Exam: Dry, Intact, Normal Color, Warm Discharge Plan - Discharge Medications Prescriptions: Pantoprazole [Protonix Inj] 40 mg IVP DAILY #30 vial - Follow Up Plan Condition: GOOD Disposition: HOME/ ROUTINE Instructions: Chest Pain (DC) Additional Instructions: Upon discharge from the hospital you will need to follow up with your primary care doctor and with Dr. Grace the triage licensed practical nurse for the results of your stress test within 3-5 days. You will be given the following new medications to take at home and should continue all of your home medications as before: protonix 40 mg by mouth daily for 30 days If you should have any symptoms of chest pain, shortness of breath, difficulty breathing, shoulder pain, pain radiating into your neck or arm, please go to the nearest emergency room immediately for treatment. Referrals: Анна Grace MD [Staff Provider] - Ger Nieto MD, PhD [Primary Care Provider] - <Afua Parnell - Last Filed: 06/06/18 09:00> Provider - Provider Date of Admission: 06/04/18 09:58 Attending physician: Afua Parnell MD Primary care physician: Ger Nieto MD Phd Hospital Course - Lab Results Lab Results: Most Recent Lab Values WBC 10.3 10^3/ul (4.5-11.0) D 06/05/18 06:30 RBC 4.93 10^6/uL (3.5-6.1) 06/05/18 06:30 Hgb 12.3 g/dL (14.0-18.0) L D 06/05/18 06:30 Hct 38.6 % (42.0-52.0) L 06/05/18 06:30 MCV 78.3 fl (80.0-105.0) L 06/05/18 06:30 MCH 24.9 pg (25.0-35.0) L 06/05/18 06:30 MCHC 31.9 g/dl (31.0-37.0) 06/05/18 06:30 RDW 14.9 % (11.5-14.5) H 06/05/18 06:30 Plt Count 219 10^3/uL (120.0-450.0) 06/05/18 06:30 MPV 9.9 fl (7.0-11.0) 06/05/18 06:30 Gran % 63.8 % (50.0-68.0) 06/05/18 06:30 Lymph % (Auto) 25.7 % (22.0-35.0) 06/05/18 06:30 [place] % (Auto) 10.0 % (1.0-6.0) H 06/05/18 06:30 Eos % (Auto) 0.4 % (1.5-5.0) L 06/05/18 06:30 Baso % (Auto) 0.1 % (0.0-3.0) 06/05/18 06:30 Gran # 6.56 (1.4-6.5) H 06/05/18 06:30 Lymph # (Auto) 2.6 (1.2-3.4) 06/05/18 06:30 [place] # (Auto) 1.0 (0.1-0.6) H 06/05/18 06:30 Eos # (Auto) 0.0 (0.0-0.7) 06/05/18 06:30 Baso # (Auto) 0.01 K/mm3 (0.0-2.0) 06/05/18 06:30 PT 12.6 SECONDS (9.4-12.5) H 06/04/18 09:04 INR 1.09 06/04/18 09:04 APTT 28.8 Seconds (25.1-36.5) 06/04/18 09:04 D-Dimer, Quantitative < 200 ng/mlDDU (0-243) 06/04/18 09:04 Sodium 139 mmol/L (132-148) 06/05/18 06:30 Potassium 3.6 mmol/L (3.6-5.0) 06/05/18 06:30 Chloride 105 mmol/L (98-107) 06/05/18 06:30 Carbon Dioxide 27 mmol/L (21-33) 06/05/18 06:30 Anion Gap 10 (10-20) 06/05/18 06:30 BUN 14 mg/dL (7-21) 06/05/18 06:30 Creatinine 1.0 mg/dl (0.8-1.5) 06/05/18 06:30 Est GFR ( Amer) > 60 06/05/18 06:30 Est GFR (Non-Af Amer) > 60 06/05/18 06:30 Random Glucose 98 mg/dL (70-110) 06/05/18 06:30 Hemoglobin A1c 5.9 % (4.2-6.5) 06/04/18 09:04 Calcium 8.5 mg/dL (8.4-10.5) 06/05/18 06:30 Phosphorus 2.9 mg/dL (2.5-4.5) 06/05/18 08:00 Magnesium 2.2 mg/dL (1.7-2.2) 06/04/18 09:04 Total Bilirubin 0.9 mg/dL (0.2-1.3) 06/05/18 06:30 AST 22 U/L (17-59) 06/05/18 06:30 ALT 35 U/L (7-56) 06/05/18 06:30 Alkaline Phosphatase 45 U/L (38-126) 06/05/18 06:30 Troponin I 0.04 ng/mL 06/04/18 23:45 NT-Pro-B Natriuret Pep 27.9 pg/mL (0-450) 06/04/18 09:04 Total Protein 6.9 g/dL (5.8-8.3) 06/05/18 06:30 Albumin 3.7 g/dL (3.0-4.8) 06/05/18 06:30 Globulin 3.3 gm/dL 06/05/18 06:30 Albumin/Globulin Ratio 1.1 (1.1-1.8) 06/05/18 06:30 Triglycerides 155 mg/dL (35-160) 06/04/18 09:04 Cholesterol 269 mg/dL (130-200) H 06/04/18 09:04 LDL Cholesterol Direct 190 mg/dL (0-129) H 06/04/18 09:04 HDL Cholesterol 46 mg/dL (29-60) 06/04/18 09:04 Lipase 17 U/L (23-300) L 06/04/18 09:04 Free T4 0.80 ng/dL (0.78-2.19) 06/04/18 09:04 TSH 3rd Generation 0.36 mIU/mL (0.46-4.68) L 06/04/18 09:04 Urine Color Yellow (YELLOW) 06/04/18 12:20 Urine Appearance Clear (CLEAR) 06/04/18 12:20 Urine pH 6.0 (4.7-8.0) 06/04/18 12:20 Ur Specific Remlap 1.020 (1.005-1.035) 06/04/18 12:20 Urine Protein Negative mg/dL (<30 mg/dL) 06/04/18 12:20 Urine Glucose (UA) Negative mg/dL (NEGATIVE) 06/04/18 12:20 Urine Ketones 15 mg/dL (NEGATIVE) H 06/04/18 12:20 Urine Blood Negative (NEGATIVE) 06/04/18 12:20 Urine Nitrate Negative (NEGATIVE) 06/04/18 12:20 Urine Bilirubin Negative (NEGATIVE) 06/04/18 12:20 Urine Urobilinogen 0.2 E.U./dL (<1 E.U./dL) 06/04/18 12:20 Ur Leukocyte Esterase Negative Janae/uL (NEGATIVE) 06/04/18 12:20 Attending/Attestation - Attestation I have personally seen and examined this patient.: Yes I have fully participated in the care of the patient.: Yes I have reviewed all pertinent clinical information, including history, physical exam and plan: Yes Notes (Text): 06/06/18 08:59 Attending note; Patient seen and examined with resident. Patient is alert and awake. Chest pain resolved. Not in any acute distress. Status post stress test. Atypical chest pain; EKG shows normal sinus rhythm/no acute ST-T changes. Cardiac enzymes 3 negative. Cardiology evaluation appreciated. History of H. pylori treated. possible gastritis suspected. Started on Protonix. History of recent gastroenteritis. Currently no diarrhea. Tolerating diet well. Patient will be discharged home today. Advised to follow up with GI as outpatient if symptoms persist. Patient might need EGD. Upon discharge the patient will follow up with PMD Dr. Sifuentes. Addendum; Stress test is negative.
--- NOTE | 2018-06-05 20:46 | CARD ---
APPROVED REPORT Date of service: 06/05/2018 Protocol: LYUDMILA Test Type: Sestamibi Stress Test Attending Physician: Dr. Анна Wilburn Referring Physician: Dr. Анна Razo Test Indications: Chest Pain Height:5 ft 10 in Weight:230lbs Medications: Atorvastatin,Ceftriaxone,Heparin, Flagyl,Protonix Medical History: 47 y/o female. Hx of palpitations and family hx of heart disease. Target HR: 175 bpm Resting ECG: RSR. Resting Heart Rate: 93 bpm Resting Blood Pressure: 120/90mmHg Submaximum (85%): 149 bpm POST EXERCISE Reason for Termination: Fatigue Target HR: No Max HR: 144 bpm 82% of Maximum Predicted HR: 175 bpm Exercise duration: 09:00 min:sec, 3 Stage Exercise capacity: 10.1METs Max Blood Pressure: 160/90mmHg Blood Pressure response to exercise: normal resting BP - appropriate response Heart Rate response to exercise: appropriate Chest Pain: Yes, Mid Chest Pain Before,During and Post Exercise Rest Continue Angina index: 0 Arrhythmia: No, none ST Change: No, none Deviation: 0 mm TEST SUMMARY [id number]:[id number]/.0. [id number]/90.0. PRETESTHYPERV.00:[id number]/90.0. PRETESTWARM-UP46:010.00.01.092/.0. EXERCISESTAGE 103:[id number]/90.0. EXERCISESTAGE 203:[id number]/90.0. EXERCISESTAGE 303:[id number]/90.0. [id number]:390.00.01.0.130/80.0. INTERPRETATION Stress EKG Conclusion: MYOVIEW NUCLEAR STRESS TEST STOPPED AFTER 9 MINUTES OF LYUDMILA PROTOCOL DUE TO FATIGUE. PATIENT ACHIEVED 82% OF PREDICTED HEART RATE. PATIENT HAD MID CHEST PAIN PRIOR TO START OF STRESS TEST WHICH CONTINUED DURING AND POST EXERCISE REST. NO ST-T CHANGES SEEN. NUCLEAR SCAN REPORT PENDING. Signed by Анна Wilburn Electronically Approved: 06/05/2018 11:22:07 EXAM: Myocardial Perfusion REST/STRESS Stress Test Type: Exercise Treadmill Imaging Protocol Rest Spect myocardial perfusion imaging was performed in supine position 45 minutes following the injection of 10.2 mCi of Tc-99 Myoview. At peak stress, the patient was injected intravenously with 30.9mCi of Tc-99 tetrofosmin after an exercise time of 9 minutes and 00 seconds. Gated Stress Spect was performed 65 minutes after intravenous Tc-99 Myoview injection. The images were gated to evaluate regional wall motion and calculate ventricular ejection fraction.Images were reconstructed using backfilter projection method in short horizontal and verticle long axis. Spect slices were generated. LV Perfusion The quality of the study is good. The left ventricle is mildly enlarged in size. The right ventricle is unremarkable. The lung uptake is within normal limits. The distribution of tracer reveals normal uptake pattern throughout the LV myocardium on the stress study. The rest myocardial perfusion study shows no significant change. Wall Motion Wall motion study shows good contractility of the left ventricle. LVEF = 55%. Conclusion 1. Normal SPECT myocardial perfusion study. 2. Normal gated wall motion of the left ventricle.
== END 2018-06-05 16:38 | disposition home or self-care (01) ==
LOC: ED 08:25 → ERH 09:58 → 3RSO 13:09
PROVIDERS: ADMIT Internal Medicine; ATTEND Internal Medicine
DX: K21.9 Gastro-esophageal reflux disease without esophagitis (principal); R07.89 Other chest pain; I25.10 Atherosclerotic heart disease of native coronary artery without angina pectoris; R73.03 Prediabetes; E66.9 Obesity, unspecified; Z68.33 Body mass index [BMI] 33.0-33.9, adult; Z82.49 Family history of ischemic heart disease and other diseases of the circulatory system
CPT/HCPCS: 36415; 71046; 78452; 80053; 80061; 81003; 83036; 83690; 83735; 83880; 84100; 84439; 84443; 84484; 85025; 85378; 85610; 85730; 93005; 93017; 93306; 96365; 96366; 96367; 96372; 96375; 99285; A9502; C9113; G0378; J0696; J1644; J7030